=== PATIENT | male | born 1965 | race Caucasian/White ===

== ENCOUNTER 2022-09-14 13:20 | Emergency (ER) | payer BC ==
[2022-09-14 13:37] VITALS: BP 112/73; PULSE 58; RESP 17; TEMP 98.6
--- NOTE | 2022-09-14 14:34 | ED ---
General Adult HPI - General Source: patient, RN notes reviewed Mode of arrival: ambulatory Limitations: no limitations <Raul Tolentino - Last Filed: 09/14/22 14:33> - General Source: patient, RN notes reviewed Mode of arrival: ambulatory Limitations: no limitations - History of Present Illness MD Complaint: Right groin pain Onset/Timin -: days(s) <Lizbeth Samaniego - Last Filed: 09/14/22 21:38> - General Chief complaint: Urogenital Stated complaint: groin pain Time Seen by Provider: 09/14/22 14:33 - History of Present Illness Initial comments: 56-year-old male presents emergency Department chief complaint of testicular pain, swelling. Patient states that this started 2 days ago. Patient was seen at urgent care sent over here for evaluation for an ultrasound and lab work. He states had lab work drawn does not mother results. He and ultrasound showing no acute process. Patient denies any trauma denies any dysuria no other associated complaints. (Raul Tolentino) In addition to the information above, patient states that the pain is dependent on his position. When he lays on the right side and puts pressure on the groin and testicular area, states that it is much more painful than when sitting still or lying on the other side. Describes the pain as being more so in the groin with some radiation into the testicle. He has not noticed any discoloration to the testicle. States that there may be mild swelling. Denies any injuries, urinary symptoms, or concerns for STDs. Denies any fevers, chills, sore throat, cough, dyspnea, chest pain, palpitations, abdominal pain, nausea, vomiting, diarrhea, back pain, or headaches. (Lizbeth Samaniego) - Related Data Allergies Allergy/AdvReac Type Severity Reaction Status Date / Time No Known Allergies Allergy Verified 09/14/22 13:32 Review of Systems ROS Other: All systems not noted in ROS Statement are negative. <Raul Tolentino - Last Filed: 09/14/22 14:33> ROS Other: All systems not noted in ROS Statement are negative. <Lizbeth Samaniego - Last Filed: 09/14/22 21:38> ROS Statement: Those systems with pertinent positive or pertinent negative responses have been documented in the HPI. Past Medical History Past Medical History: Hypertension History of Any Multi-Drug Resistant Organisms: None Reported Past Surgical History: Orthopedic Surgery Additional Past Surgical History / Comment(s): right knee, right arm tumor removal, right hand Past Psychological History: No Psychological Hx Reported Smoking Status: Never smoker Past Alcohol Use History: None Reported Past Drug Use History: None Reported <Raul Tolentino - Last Filed: 09/14/22 14:33> General Exam Limitations: no limitations <Raul Tolentino - Last Filed: 09/14/22 14:33> Limitations: no limitations General appearance: alert, in no apparent distress Head exam: Present: atraumatic, normocephalic, normal inspection Respiratory exam: Present: normal lung sounds bilaterally. Absent: respiratory distress, wheezes, rales, rhonchi, stridor Cardiovascular Exam: Present: regular rate, normal rhythm, normal heart sounds. Absent: systolic murmur, diastolic murmur, rubs, gallop, clicks GI/Abdominal exam: Present: soft, normal bowel sounds. Absent: distended, tenderness, guarding, rebound, rigid exam: Present: normal inspection. Absent: testicular tenderness, urethral discharge Expanded exam: Cremasteric Reflex Present: Left, Right Neurological exam: Present: alert, oriented X3, CN II-XII intact Psychiatric exam: Present: normal affect, normal mood Skin exam: Present: warm, dry, intact, normal color. Absent: rash <Lizbeth Samaniego - Last Filed: 09/14/22 21:38> - General Exam Comments Initial Comments: Visual Physical Exam Vital signs reviewed General: Well-appearing, nontoxic, no acute distress. Head: Normocephalic, atraumatic Eyes: PERRLA, EOMI ENT: Airway patent Chest: Nonlabored breathing Skin: No visual rash, normal skin tone Neuro: Alert and oriented 3 Musculoskeletal: No gross abnormalities (Raul Tolentino) Course Vital Signs 09/14/22 13:32 Temperature 98.6 F Pulse Rate 58 L Respiratory 17 Rate Blood Pressure 112/73 O2 Sat by Pulse 96 Oximetry Medical Decision Making - Lab Data Result diagrams: 09/14/22 15:05 09/14/22 15:05 - Radiology Data Radiology results: report reviewed, image reviewed <Lizbeth Samaniego - Last Filed: 09/14/22 21:38> - Medical Decision Making This is a 56-year-old male who presents to the emergency department for right groin pain. Was pt. sent in by a medical professional or institution? @ -Urgent Care Did you speak to anyone other than the patient for history? @ -No Did you review nursing and triage notes? @ -Yes, and I agree, it is accurate with regards to the patient's symptoms. Were old charts reviewed? @ -Yes, groin US from today, 09/14/22, revealing no acute process. Differential Diagnosis? @ -Differential groin pain: Hernia, strain, UTI, pyelonephritis, STD, this is not meant to be an all- inclusive list. EKG interpreted by me (3pts min.)? @ -Not obtained X-rays interpreted by me (1pt min.)? @ -Not obtained CT interpreted by me (1pt min.)? @ -Computed tomography scan of the abdomen and pelvis obtained. My interpretation identifies no evidence of bowel wall thickening or free air. U/S interpreted by me (1pt. min.)? @ -Not obtained What testing was considered but not performed? (CT, X-rays, U/S, labs)? Why? @ -None What meds were considered but not given? Why? @ -None Did you discuss the management of the patient with other professionals? @ -No Did you reconcile home meds? @ -No Was smoking cessation discussed for >3mins.? @ -No Was critical care preformed (if so, how long)? @ -No Were there social determinants of health that impacted care today? How? (Homelessness, low income, unemployed, alcoholism, drug addiction, transportation, low edu. Level, literacy, decrease access to med. care, alf, rehab)? @ -No Was there de-escalation of care discussed even if they declined? (Discuss DNR or withdrawal of care, Hospice)? @ -No What co-morbidities impacted this encounter? (DM, HTN, Smoking, COPD, CAD, Cancer, CVA, Hep., AIDS, mental health diagnosis, sleep apnea, morbid obesity)? @ -None Was patient admitted / discharged? @ -Discharged. Lab work obtained and found to be nonactionable. UA is negative for signs of infection or other acute process. Groin ultrasound obtained on an outpatient basis from today revealed no acute process. Computed tomography scan of the abdomen and pelvis reveals bilateral fat-containing inguinal hernias, however there is no evidence for acute process. Discussed that the cause of his symptoms is not entirely clear. He may have pain related to the fat-containing inguinal hernias, however these are likely chronic in nature. Advised follow up with his PCP for reevaluation and further discussion of ongoing symptoms. Also advised ibuprofen and Tylenol as needed for pain relief. Undiagnosed new problem with uncertain prognosis? @ -None Drug Therapy requiring intensive monitoring for toxicity (Heparin, Nitro, Insulin, Cardizem)? @ -None Were any procedures done? @ -None Diagnosis/symptom? @ -Right groin pain Acute, or Chronic, or Acute on Chronic? @ -Acute Uncomplicated (without systemic symptoms) or Complicated (systemic symptoms)? @ -Uncomplicated Side effects of treatment? @ -None Exacerbation, Progression, or Severe Exacerbation] @ -Not applicable Poses a threat to life or bodily function? @ -No Return precautions reviewed in depth, the patient is instructed to return to the emergency department with any new, worsening, or concerning symptoms. Patient verbalized understanding. This case was discussed in detail with the attending ED physician, Dr. Chris. Presentation, findings, and treatment plan discussed in detail as well. (Lizbeth Samaniego) - Lab Data Lab Results 09/14/22 09/14/22 09/14/22 Range/Units 15:05 15:05 16:48 WBC 5.8 (3.8-10.6) k/uL RBC 4.29 L (4.30-5.90) m/uL Hgb 13.6 (13.0-17.5) gm/dL Hct 37.6 L (39.0-53.0) % MCV 87.7 (80.0-100.0) fL MCH 31.8 (25.0-35.0) pg MCHC 36.3 (31.0-37.0) g/dL RDW 13.0 (11.5-15.5) % Plt Count 199 (150-450) k/uL MPV 8.2 Neutrophils % 58 % Lymphocytes % 30 % Monocytes % 7 % Eosinophils % 3 % Basophils % 1 % Neutrophils # 3.4 (1.3-7.7) k/uL Lymphocytes # 1.7 (1.0-4.8) k/uL Monocytes # 0.4 (0-1.0) k/uL Eosinophils # 0.1 (0-0.7) k/uL Basophils # 0.0 (0-0.2) k/uL Sodium 137 (137-145) mmol/L Potassium 5.3 H (3.5-5.1) mmol/L Chloride 101 (98-107) mmol/L Carbon Dioxide 29 (22-30) mmol/L Anion Gap 7 mmol/L BUN 18 (9-20) mg/dL Creatinine 0.83 (0.66-1.25) mg/dL Est GFR (CKD-EPI)AfAm >90 (>60 ml/min/1.73 sqM) Est GFR (CKD-EPI)NonAf >90 (>60 ml/min/1.73 sqM) Glucose 105 H (74-99) mg/dL Calcium 9.4 (8.4-10.2) mg/dL Total Bilirubin 0.8 (0.2-1.3) mg/dL AST 27 (17-59) U/L ALT 25 (4-49) U/L Alkaline Phosphatase 59 (38-126) U/L Total Protein 7.0 (6.3-8.2) g/dL Albumin 4.3 (3.5-5.0) g/dL Urine Color Yellow Urine Appearance Clear (Clear) Urine pH 7.5 (5.0-8.0) Ur Specific [place] 1.028 (1.001-1.035) Urine Protein Negative (Negative) Urine Glucose (UA) Negative (Negative) Urine Ketones Negative (Negative) Urine Blood Negative (Negative) Urine Nitrite Negative (Negative) Urine Bilirubin Negative (Negative) Urine Urobilinogen <2.0 (<2.0) mg/dL Ur Leukocyte Esterase Negative (Negative) Disposition <Raul Tolentino - Last Filed: 09/14/22 14:33> Is patient prescribed a controlled substance at d/c from ED?: No <Lizbeth Samaniego - Last Filed: 09/14/22 21:38> Clinical Impression: Right groin pain Disposition: HOME SELF-CARE Instructions (If sedation given, give patient instructions): Testicle Pain (ED), Groin Pain (ED) Additional Instructions: Return to the emergency department with any new, worsening, or concerning symptoms. Alternate with ibuprofen and Tylenol as needed for pain relief. You can try applying ice and keeping the scrotum elevated by rolling up a small towel and putting underneath the testicle. Follow up with your primary care provider in 1-2 days. Contact urology as listed below first thing in the morning for a follow-up appointment. Referrals: Nonstaff,Physician [REFERRING] - 1-2 days Olu Mcbride MD [STAFF PHYSICIAN] - 1-2 days
[2022-09-14 15:22] LABS: Basophils % (A) 1 %; Eosinophils # (A) 0.1 k/uL (0-0.7); Eosinophils % (A) 3 %; HCT 37.6 % (39.0-53.0); HGB 13.6 gm/dL (13.0-17.5); Lymphocytes # (A) 1.7 k/uL (1.0-4.8); Lymphocytes % (A) 30 %; MCH 31.8 pg (25.0-35.0); MCHC 36.3 g/dL (31.0-37.0); MCV 87.7 fL (80.0-100.0); Mean Platelet Volume 8.2; Monocytes # (A) 0.4 k/uL (0-1.0); Monocytes % (A) 7 %; Neutrophils # (A) 3.4 k/uL (1.3-7.7); Neutrophils % (A) 58 %; Platelet Count 199 k/uL (150-450); RBC 4.29 m/uL (4.30-5.90); WBC 5.8 k/uL (3.8-10.6)
[2022-09-14 15:24] LABS: ALT 25 U/L (4-49); AST 27 U/L (17-59); African American GFR (CKD) >90 (>60 ml/min/1.73 sqM); Albumin 4.3 g/dL (3.5-5.0); Alkaline Phosphatase 59 U/L (38-126); Anion Gap 7 mmol/L; Blood Urea Nitrogen 18 mg/dL (9-20); Calcium 9.4 mg/dL (8.4-10.2); Carbon Dioxide 29 mmol/L (22-30); Chloride 101 mmol/L (98-107); Glucose 105 mg/dL (74-99); Non-African American GFR(CKD) >90 (>60 ml/min/1.73 sqM); Potassium 5.3 mmol/L (3.5-5.1); Sodium 137 mmol/L (137-145); Total Bilirubin 0.8 mg/dL (0.2-1.3)
[2022-09-14 17:06] LABS: Appearance,Urine Clear (Clear); Bilirubin,Urine Negative (Negative); Blood,Urine Negative (Negative); Color,Urine Yellow; Glucose,Urine (UA) Negative (Negative); Ketones,Urine Negative (Negative); Leukocyte Esterase,Urine Negative (Negative); Nitrite,Urine Negative (Negative); PH, Urine 7.5 (5.0-8.0); Protein,Urine Negative (Negative); Specific Gravity,Urine 1.028 (1.001-1.035); Urobilinogen,Urine <2.0 mg/dL (<2.0)
--- NOTE | 2022-09-14 17:06 | CT ---
EXAMINATION TYPE: CT abdomen pelvis w con CT DLP: 1271.2 mGycm, Automated exposure control for dose reduction was used. DATE OF EXAM: 09/14/2022 4:38 PM COMPARISON: Ultrasound same day CLINICAL INDICATION:Male, 56 years old with history of RLQ and right testicular pain and swelling; RL Q/groin/testicular pain TECHNIQUE: Axial CT of the abdomen and pelvis. Sagittal and coronal reformats were created on a [employer] workstation. Contrast used:100 mL of Isovue 300 with IV Contrast, (none if empty) Oral contrast used: without Oral Contrast (none if empty) FINDINGS: LOWER CHEST: Unremarkable ABDOMEN LIVER: Unremarkable GALLBLADDER AND BILE DUCTS: Unremarkable. PANCREAS: Unremarkable. SPLEEN: Scattered calcified granulomas. ADRENAL GLANDS: Unremarkable. KIDNEYS AND URETERS: No evidence of hydronephrosis or renal calculus. The ureters are unremarkable. PELVIS BLADDER: Unremarkable REPRODUCTIVE: CT appearance to the testis and scrotum is grossly unremarkable. ABDOMEN & PELVIS STOMACH AND BOWEL: No evidence of bowel obstruction. The appendix is not visualized. No secondary sig ns of appendicitis. PERITONEUM/RETROPERITONEUM: No evidence of pneumoperitoneum or free fluid. VASCULATURE: No evidence of aortic aneurysm. MUSCULOSKELETAL: No acute osseous abnormalities LYMPH NODES: No gross evidence for lymphadenopathy. SOFT TISSUE/ABDOMINAL WALL: Bilateral fat filled inguinal hernia. IMPRESSION: 1. No evidence for acute right lower quadrant process. The appendix is not visualized and may be abraham gically absent. No secondary signs of appendicitis. No evidence for obstructive uropathy or renal gino culus. 2. Bilateral fat-containing inguinal hernias.
[2022-09-14] MEDS ORDERED: IBUPROFEN 600 MG STARTER PACK 4 TAB BTL PO STA (17:27)
[2022-09-14] MEDS ORDERED: ACET/COD 300 MG/30 MG STARTER PACK 6 TAB BTL PO STA (17:27)
== END 2022-09-14 17:44 | disposition home or self-care (01) ==
LOC: EC 13:20
DX: K40.20 Bilateral inguinal hernia, without obstruction or gangrene, not specified as recurrent (principal); I10 Essential (primary) hypertension
CPT/HCPCS: 36415; 80053; 85025; 81003; 74177; 99284; Q9967

== ENCOUNTER → 2022-09-14 | Outpatient (CLI) | payer BC ==
--- NOTE | 2022-09-14 10:50 | US ---
EXAMINATION TYPE: US groin RT DATE OF EXAM: 09/14/2022 COMPARISON: NONE CLINICAL INDICATION: Male, 56 years old with history of R10.2 PELVIC AND PERINEAL PAIN; Right groin p ain. No injury. No palpable. TECHNIQUE: Grayscale imaging of the right groin. FINDINGS: Area of concern scanned at right groin. No prominent masses, lesions or hernia identified at time of scan. No organizing fluid collection visualized. IMPRESSION: No evidence for mass or hernia identified.
[2022-09-14 16:34] LABS: Basophils # (A) 0.07 X 10*3/uL (0.00-0.10); Basophils % (A) 1.1 %; Eosinophils % (A) 1.6 %; HCT 40.2 % (39.6-50.0); HGB 13.8 d/dL (12.0-15.0); Lymphocytes % (A) 22.3 %; MCH 31.1 pg (27.0-32.0); MCHC 34.3 d/dL (32.0-37.0); MCV 90.5 FL (80.0-97.0); Mean Platelet Volume 11.3 FL (9.5-12.2); Monocytes # (A) 0.39 X 10*3/uL (0.20-1.00); Monocytes % (A) 6.2 %; NRBC Per 100 WBC 0 X 10*3/uL (0.00-0.01); Neutrophils # (A) 4.31 X 10*3/uL (1.80-7.70); Neutrophils % (A) 68.5 %; Platelet Count 222 X 10*3/uL (140-440); RBC 4.44 X 10*6/uL (4.40-5.60); RDW 12.4 % (11.5-14.5); WBC 6.29 X 10*3/uL (4.50-10.00)
[2022-09-14 17:29] LABS: ALT 26 U/L (10-49); AST 22 U/L (14-35); Albumin 4.6 d/dL (3.8-4.9); Albumin/Globulin Ratio 1.84 Ratio (1.60-3.17); Alkaline Phosphatase 69 U/L (41-126); Blood Urea Nitrogen 15.3 mg/dL (9.0-27.0); Calcium 9.9 mg/dL (8.7-10.3); Carbon Dioxide 27.2 mmol/L (21.6-31.8); Chloride 100 mmol/L (96-109); Globulin 2.5 d/dL (1.6-3.3); Glucose 98 mg/dL (70-110); Potassium 6.2 mmol/L (3.5-5.5); Sodium 135 mmol/L (135-145); Total Bilirubin 0.7 mg/dL (0.3-1.2); Total Protein 7.1 d/dL (6.2-8.2)
== END | disposition home or self-care (01) ==
LOC: RADUSWWP 09:55
PROVIDERS: ATTEND Family Medicine
DX: R10.2 Pelvic and perineal pain (principal)
CPT/HCPCS: 80053; 85025